=== PATIENT | female | born 1990 | race Caucasian/White ===

== ENCOUNTER → 2019-03-07 15:17 | Observation (INO) ==
[2019-03-07 12:57] LABS: Amphetamine Screen,Urine Negative ng/mL (Cutoff=1000); Barbiturate Screen,Urine Negative ng/mL (Cutoff=200); Benzodiazepines Screen,Urine Negative ng/mL (Cutoff=200); Cannabinoid Screen,Urine Negative ng/mL (Cutoff = 50); Cocaine Screen,Urine Negative ng/mL (Cutoff= 300); Opiate Screen,Urine Negative ng/mL (Cutoff=300); Phencyclidine Screen,Urine Negative ng/mL (Cutoff=25)
== END | disposition home or self-care (01) ==
LOC: 1NENULAB
PROVIDERS: ADMIT Advanced Practice Midwife; ATTEND Advanced Practice Midwife

== ENCOUNTER 2019-03-07 21:14 | Inpatient (IN) ==
--- NOTE | 2019-03-07 21:12 | OB/GYN History & Physical ---
Date of Encounter: 03/07/19 Time of Encounter: 21:06 Assessment and Plan (1) 39 weeks gestation of Current visit: Yes Status: Acute Admit for labor GBS negative patient would like as minimal interventions as possible Consider AROM if cervix progression stalls Anticipate vaginal delivery POC per consult with Dr Ortiz History of Present Illness Chief complaint: Laboring HPI: Ms. Alvarez is a 28 year old at 39 weeks 3 days that presents to triage with c/o contractions that have increased over the past few hours. She states positive movement. She denies headaches, vision changes, epigastric pain, and leaking of fluid. She has had a normal course. She states her last deliver was without complications. She is seen by the midwives for her care. Labs: GBS negative Blood type A+ Rubella Immune Hep B NR VDRL Neg Past Med Surg Social Fam HX - Past Medical History Medical history: no medical history Psychiatric history: no psych history - Past Surgical History Surgical History: no surgical history - Social History Smoking Status: Never smoker Smokeless Tobacco Status: No Alcohol use: none Drug use: none - Family History Mother Adopted: No Family Member Ethnicity: Non- Living Status: Still Living Hx Family Cardiac Disorders: No Hx Family Respiratory Disorders: No Hx Family Cancer: No Hx Family GI Disorders: No Hx Family Endocrine Disorder: No Hx Family Neuromuscular Disorders: No Hx Family Neurologic Disorders: No Hx Family HEENT Disorders: No Hx Family Autoimmune Disorders: No Obstetrical History - Pregnancies : 2 Para: 1 Term: 1 : 0 Ab's: 0 Livin Medications and Allergies 19 Tablet 1 tab PO DAILY 03/07/19 [History] Allergy/AdvReac Type Severity Reaction Status Date / Time codeine Allergy Hallucinati Verified 03/07/19 19:57 ng Review of System OB All systems PM: reviewed and no additional remarkable complaints except as stated Exam - Constitutional Constitutional: well developed, well nourished, no acute distress, average body habitus - HEENT HEENT: Normocephaly, Mucus Membranes Moist - Neck Neck exam: full ROM - Lungs Respiratory exam: CTAB - Cardiovascular Cardiovascular exam: RRR, +S1, +S2 - Abdomen Abdomen: Present: bowel sounds normal, gravid, non tender - Extremities Extremities exam: normal capillary refill, normal inspection, radial pulses palpable and symmetrical Deep Tendon Reflex Grade: 2+ Normal - Vulva Vulva: bilateral: normal - Vagina Vagina: Present: normal moisture - Cervix Dilation: 5 (5-6) Effacement: 80 Station: -2 - Uterus Uterus exam: Present: normal size, normal contour - Anus/Rectum Anus/Rectum: Present: normal perianal skin Results All other labs normal. - VTE Reasons for not Prescribing Prophylaxis: Treatment not Indicated - Low risk for VTE
[~2019-03-07 21:14] MED LIST: *HR* Nalbuphine 10 MG/ML AMPUL IVP PRN; Famotidine 20 MG/2 ML VIAL IVP PRN; Lidocaine 1% 20 ML MDV INFILT PRN; Metoclopramide 10 MG/2 ML VIAL IVP PRN; Naloxone 0.4 MG/ML INJ IVP PRN; Ondansetron 4 MG/2 ML VIAL IVP PRN
[2019-03-07] MEDS ORDERED: Ringers Solution, Lactated 1,000 ML IVC SCH (21:15)
[2019-03-07 21:39] LABS: Basophils % 0.1 %; Eosinophils # 0.1 K/mcL (0.0-0.6); Eosinophils % 0.6 %; Hematocrit 35.5 % (35.3-44.9); Hemoglobin 11.7 g/dL (11.5-15.4); Lymphocytes # 2.4 K/mcL (0.6-4.6); Lymphocytes % 21.5 %; Mean Corpuscular Hemoglobin 30.5 pg (28.0-33.3); Mean Corpuscular Volume 92.7 fL (83.0-100.0); Mean Platelet Volume 11.2 fL (9.4-12.4); Monocytes % 9.2 %; Neutrophils # 7.7 K/mcL (1.6-8.9); Platelet Count 196 K/mcL (140-400); Red Blood Count 3.83 M/mcL (3.82-4.97); Red Cell Distribution Width 13.2 % (11.5-14.5); Segmented Neutrophils % 67.6 %; White Blood Count 11.3 K/mcL (4.3-11.1)
[2019-03-07] MEDS ORDERED: Acetaminophen 325 MG TABLET PO ONE (21:46)
--- NOTE | 2019-03-07 21:59 | Anesthesia Evaluation PreOp ---
Date of Encounter: 03/07/19 Time of Encounter: 22:01 - Past History Planned Operation: Del, 39wk spont Cardiac History: Denies any Significant Hx Pulmonary History: Denies Any Significant HX RATING CLERK History: Other (broken tail-bone, with bilateral radiculopathy, denies dependent in nature, good functional capacity, ROM, visits chiro reg says that it helps, previous epidural placement without issues.) Other Medical History: Denies Any Significant HX Anesthesia History: No Prior Anesthetic Complications (no known issues), Past Anesthesia (previous epidural had to turn it down,) Alcohol Use: none Drug use: none Medications and Allergies 19 Tablet 1 tab PO DAILY 03/07/19 [History] Allergy/AdvReac Type Severity Reaction Status Date / Time codeine Allergy Hallucinati Verified 03/07/19 19:57 ng Anesthesia Results - Labs 03/07/19 21:15 Anesthesia Exam - HEENT Pupil (Motor): Pupils equal Mallampati: II Teeth: Normal Oral Opening: Greater than 3 - RATING CLERK LOC: Oriented RATING CLERK Motor: Normal RUE, Normal LUE, Normal RLE, Normal LLE, Normal Face RATING CLERK Sensory: Normal: RUE, LUE, RLE, LLE, Face - Cardiac Rhythm: Regular Murmur: None - Pulmonary Breath Sounds: bilateral Clear Respiratory Effort: Symmetrical Anesthesia Assess/Plan ASA Score: 2 Level of consciousness: Cooperative, Oriented Anesthetic Plan: General, Spinal, Epidural (currently wants to try without regional.) Monitoring Plan: Standard Monitors Recovery Plan: PACU
[2019-03-07] MEDS ORDERED: Epidural Premix (fent/bupiv) 110 ML EP SCH (22:00)
[2019-03-08] MEDS ORDERED: Mag Hydrox/Al Hydrox/Simeth 30 ML UDC PO PRN (01:34)
--- NOTE | 2019-03-08 01:50 | Anesthesia Procedures ---
Date of Encounter: 03/08/19 Time of Encounter: 00:48 Procedures: Anesthesia - Epidural/Spinal Patient ID/Chart reviewed: Yes Patient examined: Yes OB Eval: Contractions: Non-stressed pattern Consent Obtained: Yes Supplemental Oxygen: None/Room Air Site Prep: Aseptic Technique, Sterile prep and drape, 0.5% Chlorhexidine/Alcohol Patient position: upright Local Anesthetic: Lidocaine 1% Amount of Local Anesthetic used: 2 Touhy Needle Gauge: 18 Touhy Needle Depth (cm): 6 Catheter Depth at Skin (cm): 11 Test Dose (1.5% Lido + Epi): Volume given (mls): 4 Test Dose Result: Negative Loading Dose: Other: 10ml from solution Loading Dose Administered: Thru Catheter Infusion Med: 0.125% Bupivacaine w/ 2 mcg/ml Fentanyl Infusion Rate (mls/hr): [address]: Tegaderm, Tape Interspace Used: L3-L4 Loss of Resistance (KARLA): Yes (saline) Blood: No CSF: Yes (25g purposeful, no inj) Paresthesia: No Procedure: vss though out procedure, FHR stable per team
--- NOTE | 2019-03-08 03:50 | OB Labor Progress Note ---
Date of Encounter: 03/08/19 Time of Encounter: 03:47 Labor Progress Note - Subjective Subjective: Patient denies any pain. Sitting in bed comfortably with epidural in place. - Vital Signs Vital Signs: VSS - Cervix Cervix: Complete with BBOW - Heart Tones Heart Tones: 140 moderate variability and 15 x 15 accels with no decels - [place]: contractions every 2 minutes - Interventions Interventions: AROM for moderate amount of clear fluid. Patient and fetus tolerated well - Plan Plan: Continue routine labor monitoring GBS negative Labor down Anticipate vaginal delivery POC per consult with Dr Ortiz
--- NOTE | 2019-03-08 09:13 | OB/GYN Procedure Note ---
Delivery - Delivery Date: 03/08/19 Provider: Mallory Turner Intrapartum events: none Delivery augmentation: rupture of membranes Delivery monitor: external FHT, external uterine Anesthesia: epidural Quantitated Blood Loss: 100 - (s) Infant A Delivery Date: 03/08/19 Delivery Time: 08:47 Presentation: vertex Position: OA Route of delivery: Gender: Female Viability: Viable Pounds: 8 Ounces: 13 Weight Gram: 4 kg at 1 minute: 7 at 5 mins: 9 Shoulder Dystocia: not encountered Placenta: spontaneous, uterine exploration Cord: 3 umbilical vessels - Repair Episiotomy: none Laceration Description: None - Complications Delivery complications: none - Disposition Mom disposition: stable in LDR [place] disposition: stable in LDR - Comments Comments: Called to LDR, patient complete. Patient placed in stirrups and prepped for vaginal delivery. I was gowned and gloved and together with Dr. Liao PGY 1 delivered a viable female over and intact perineum. No nuchal cord, shoulder dystocia or meconium was encountered. Infant was placed on maternal abdomen. Cord was clamped and cut after pulsations ceased. remained skin to skin. Placenta then delivered spontaneously and visually intact. The uterus was explored for blood clots. All counts correct. EBL 100. Apgars 7/9. Pericare provided. Both mother and stable in LDR for 1 hour recovery.
[2019-03-08] MEDS ORDERED: Measles/Mumps/Rubella Vacc 0.5 ML VIAL SQ PRN (10:01)
[2019-03-08] MEDS ORDERED: Lanolin 7 G OINT...G. TP PRN (10:01)
[2019-03-08] MEDS ORDERED: Oxytocin 20 units/ LR 1000 mL 20 UNIT/1,000 ML BAG IVC SCH (10:01)
[2019-03-08] MEDS ORDERED: Acetaminophen 325 MG TABLET PO PRN (10:01)
[2019-03-08] MEDS ORDERED: Benzocaine/Menthol 56 GM AEROSOL SPRAY TP PRN (10:01)
[2019-03-08] MEDS: *HR* HYDROcodone/Acet 5/325 mg TABLET PO PRN ×2 (12:08→18:53)
[2019-03-08] MEDS: Ibuprofen 600 MG TABLET PO PRN (19:49)
[2019-03-09] MEDS: Ibuprofen 600 MG TABLET PO PRN ×2 (05:30→11:27)
[2019-03-09] MEDS ORDERED: Prenatal Vit/FA 1 EACH TABLET PO SCH (09:00)
[2019-03-09 09:42] VITALS: BP 106/74
--- NOTE | 2019-03-09 12:00 | Discharge Summary ---
Date of Encounter: 03/09/19 Time of Encounter: 11:57 - Discharge Diagnosis (1) Status post vaginal delivery Priority: Primary Status: Acute Comments: Patient meeting day one milestones. Pain well-controlled with prescribed medications. Voiding without difficulty, tolerating regular diet, bleeding light. No bowel movement yet. Anticipate discharge today Patient declines Motrin prescription stating she will take OTC. (2) Breast feeding status of mother Priority: Secondary Status: Acute Comments: support as needed Reports she has a breast pump at home - Discharge Medications Prescriptions: New Acetaminophen [Tylenol] 650 mg PO Q6HR PRN tablet PRN Reason: Mild Pain Ibuprofen [Motrin] 600 mg PO Q6HR PRN tablet PRN Reason: Cramping Benzocaine/Menthol Caraway [Dermoplast Caraway] 1 appl TP QID PRN aerosol PRN Reason: See Comments Docusate [Colace] 100 mg PO BID capsule Lanolin [Lansinoh] 1 appl TP TID PRN oint...g. PRN Reason: Sore Nipples Continued 19 Tablet 1 tab PO DAILY Home Medications: 19 Tablet 1 tab PO DAILY 03/07/19 [History] Acetaminophen [Tylenol] 650 mg PO Q6HR PRN tablet 03/09/19 [Rx] Benzocaine/Menthol Caraway [Dermoplast Caraway] 1 appl TP QID PRN aerosol 03/09/19 [Rx] Docusate [Colace] 100 mg PO BID capsule 03/09/19 [Rx] Ibuprofen [Motrin] 600 mg PO Q6HR PRN tablet 03/09/19 [Rx] Lanolin [Lansinoh] 1 appl TP TID PRN oint...g. 03/09/19 [Rx] Allergies/Adverse Reactions: Allergy/AdvReac Type Severity Reaction Status Date / Time codeine Allergy Hallucinati Verified 03/07/19 19:57 ng Data Procedures and tests throughout hospitalization: Laboratory Tests 03/07/19 21:15 WBC 11.3 H RBC 3.83 Hgb 11.7 Hct 35.5 MCV 92.7 MCH 30.5 MCHC 33.0 RDW 13.2 Plt Count 196 MPV 11.2 Immature Gran % 1.0 Seg Neutrophils % 67.6 Lymphocytes % 21.5 Monocytes % 9.2 Eosinophils % 0.6 Basophils % 0.1 Neutrophils # 7.7 Lymphocytes # 2.4 Monocytes # 1.0 Eosinophils # 0.1 Basophils # 0.0 Date of admission: 03/07/19 21:14 Consults: 03/08/19 10:01 Consult to Dispatch Specialist [CONS] Routine Comment: Vaginal delivery, consult needed Discharging clinician: Hannah Radford Anticipated date of discharge: 03/09/19 - Patient Status Disposition: Home, Self-Care Condition: Good Functional capacity at discharge: independent ambulation Overall status at discharge: patient is progressing back to baseline - Discharge Instructions - Diet and Activity Activity: resume usual activities as tolerated Diet: regular diet Hospital Course Reason for admission: active labor Delivery: Episiotomy: none Laceration: none Other procedures: none complications: none Discharge diagnosis: IUP at term delivered [place] baby: female Hospital course: Delivery Date: 03/08/19 Provider: Mallory Turner Intrapartum events: none Delivery augmentation: rupture of membranes Delivery monitor: external FHT, external uterine Anesthesia: epidural Quantitated Blood Loss: 100 - Infant (s) Infant A Delivery Date: 03/08/19 Delivery Time: 08:47 Presentation: vertex Position: OA Route of delivery: Gender: Female Viability: Viable Pounds: 8 Ounces: 13 Weight Gram: 4 kg at 1 minute: 7 at 5 mins: 9 Shoulder Dystocia: not encountered Placenta: spontaneous, uterine exploration Cord: 3 umbilical vessels - Repair Episiotomy: none Laceration Description: None - Complications Delivery complications: none - Disposition Mom disposition: stable in LDR disposition: stable in LDR - Comments Comments: Called to LDR, patient complete. Patient placed in stirrups and prepped for vaginal delivery. I was gowned and gloved and together with Dr. Liao PGY 1 delivered a viable female infant over and intact perineum. No nuchal cord, shoulder dystocia or meconium was encountered. Infant was placed on maternal abdomen. Cord was clamped and cut after pulsations ceased. Infant remained skin to skin. Placenta then delivered spontaneously and visually intact. The uterus was explored for blood clots. All counts correct. EBL 100. Apgars 7/9. Pericare provided. Both mother and stable in LDR for 1 hour recovery. Time Attestation: Total time spent providing and/or coordinating discharge services: Time Spent: Less than 30 minutes Exam - Constitutional Vitals: Temp Pulse Resp BP Pulse Ox 97.4 F L 87 16 106/74 98 03/09/19 08:15 03/09/19 08:15 03/09/19 10:23 03/09/19 08:15 03/09/19 08:15 General appearance IM: A&O X 3, pleasant, no acute distress, answers questions appropriately - Respiratory Respiratory exam: Present: CTAB. Absent: respiratory distress - Cardiovascular Cardiovascular exam IM: Present: RRR, +S1, +S2. Absent: irregular rhythm - GI/Abdominal GI/Abdominal exam IM: normal bowel sounds, soft - Rectal Rectal exam: deferred - External exam: normal external exam Uterine Tone: Firm Uterus Position: At Umbilicus, Midline - Extremities Exam Extremities exam IM: Present: full ROM, normal capillary refill, normal inspection. Absent: calf tenderness - Neurological Exam Neurological exam: alert, normal gait, oriented X3
== END 2019-03-09 13:47 | disposition home or self-care (01) | DRG 807 ==
LOC: 1NENULAB → 1NENUOBS 03-08 11:34
PROVIDERS: ADMIT Advanced Practice Midwife; ATTEND Advanced Practice Midwife